=== PATIENT | female | born 1950 | race Caucasian/White ===

== ENCOUNTER → 2016-10-21 | Outpatient (CLI) | payer OTHER | END | disposition home or self-care (01) | LOC: MA 12:43 | PROC: BH02ZZZ Plain Radiography of Bilateral Breasts (ICD-10-PCS; principal; 2016-10-21) | DX: Z12.39 Encounter for other screening for malignant neoplasm of breast (principal) | CPT/HCPCS: G0202 ==

== ENCOUNTER 2017-05-24 15:32 | Inpatient (IN) | payer OTHER ==
[~2017-05-24] VITALS: Ht 157.5 cm; Wt 65.0 kg
[2017-05-24 17:35] VITALS: BP 124/52
[2017-05-24 19:30] VITALS: BP 109/44
[2017-05-24 20:01] LABS: FREE T4 0.98 ng/dL (0.76-1.46); FREE THYROXINE INDEX 2.3 ug/dL (1.4-4.5); T4(THYROXINE) 6.8 ug/dL (4.7-13.3)
[2017-05-24 20:06] LABS: CHOLESTEROL/HDL RATIO 3.4; MAGNESIUM 2.1 mg/dL (1.8-2.4); PHOSPHOROUS 3.4 mg/dL (2.5-4.9)
[2017-05-24 20:39] VITALS: BP 125/53
[2017-05-24 21:00] LABS: T3 TOTAL 1.02 ng/mL
[2017-05-24 21:16] LABS: BASOPHIL % 0.2 % (0-2); PLATELET COUNT 246 x10^3mcL (130-400); RED CELL DISTRIBUTION WIDTH 13.6 % (11.5-14.5)
[2017-05-24] MEDS ORDERED: LIPITOR40 MG PO (22:43)
[2017-05-24] MEDS ORDERED: LUNESTA2 M1 PO (22:44)
[2017-05-24 23:02] LABS: microscopic required? NO
[2017-05-24 23:10] LABS: UA SPECIFIC GRAVITY 1.015 (1.005-1.035); urine erythrocyte NEGATIVE (NEGATIVE)
[2017-05-24 23:21] LABS: AMPHETAMINE QUAL UR NONE DETECTED (NEG <=1000)
[2017-05-25] VITALS (8 sets, daily range): BP systolic 11–118; BP diastolic 31–63
[2017-05-25 02:52] LABS: CALCIUM 9.1 mg/dL (8.5-10.1); CARBON DIOXIDE 26.3 mmol/L (21-32); CHLORIDE SERUM 101 mmol/L (98-107); CREATININE SERUM 0.8 mg/dL (0.6-1.0); GFR1 > 60 mL/min; GLUCOSE SERUM 128 mg/dL (74-106); POTASSIUM SERUM 4.3 mmol/L (3.5-5.1); SODIUM SERUM 138 mmol/L (136-145)
[2017-05-25 07:13] LABS: BASOPHIL % 0.3 % (0-2); PLATELET COUNT 216 x10^3mcL (130-400); RED CELL DISTRIBUTION WIDTH 13.7 % (11.5-14.5)
[2017-05-25 07:22] LABS: CALCIUM 8.2 mg/dL (8.5-10.1); CARBON DIOXIDE 25.7 mmol/L (21-32); CHLORIDE SERUM 103 mmol/L (98-107); CREATININE SERUM 0.8 mg/dL (0.6-1.0); GFR1 > 60 mL/min; GLUCOSE SERUM 109 mg/dL (74-106); SODIUM SERUM 139 mmol/L (136-145)
[2017-05-26 05:53] VITALS: BP 119/55
[2017-05-26 06:50] LABS: CALCIUM 8.6 mg/dL (8.5-10.1); CARBON DIOXIDE 25.4 mmol/L (21-32); CHLORIDE SERUM 107 mmol/L (98-107); CREATININE SERUM 0.8 mg/dL (0.6-1.0); GFR1 > 60 mL/min; GLUCOSE SERUM 110 mg/dL (74-106); PHOSPHOROUS 3.7 mg/dL (2.5-4.9); POTASSIUM SERUM 4.2 mmol/L (3.5-5.1); SODIUM SERUM 141 mmol/L (136-145)
[2017-05-26 07:26] LABS: BASOPHIL % 0.6 % (0-2); PLATELET COUNT 201 x10^3mcL (130-400); RED CELL DISTRIBUTION WIDTH 13.7 % (11.5-14.5)
[2017-05-26 10:32] VITALS: BP 129/59
[2017-05-26 18:25] VITALS: BP 122/45
[2017-05-26 20:33] VITALS: BP 123/44
[2017-05-27 05:04] VITALS: BP 117/47
[2017-05-27 07:02] LABS: BASOPHIL % 0.5 % (0-2); PLATELET COUNT 217 x10^3mcL (130-400); RED CELL DISTRIBUTION WIDTH 13.4 % (11.5-14.5)
[2017-05-27 07:33] LABS: CALCIUM 8.6 mg/dL (8.5-10.1); CARBON DIOXIDE 24.1 mmol/L (21-32); CHLORIDE SERUM 104 mmol/L (98-107); CREATININE SERUM 0.7 mg/dL (0.6-1.0); GFR1 > 60 mL/min; GLUCOSE SERUM 106 mg/dL (74-106); MAGNESIUM 1.9 mg/dL (1.8-2.4); PHOSPHOROUS 3.3 mg/dL (2.5-4.9); SODIUM SERUM 139 mmol/L (136-145)
[2017-05-27 09:08] VITALS: BP 142/65
[2017-05-27] MEDS ORDERED: CYCLOBENZAPRINE5 MG PO (10:15)
[2017-05-27] MEDS ORDERED: NOR10T PO (10:17)
[2017-05-27] MEDS ORDERED: ZOFRAN8 MG PO (10:18)
[2017-05-27] MEDS ORDERED: IBUPROFEN800 MG PO (10:19)
[2017-05-27 11:41] VITALS: BP 135/64
[2017-05-27 12:08] VITALS: BP 135/64
== END 2017-05-27 16:50 | disposition home health service (06) | DRG 536 ==
LOC: DU 15:32 → MU 05-26 09:40
PROVIDERS: Family Medicine
DX: S32.492A Other specified fracture of left acetabulum, initial encounter for closed fracture (principal); D68.69 Other thrombophilia; S20.212A Contusion of left front wall of thorax, initial encounter; E78.5 Hyperlipidemia, unspecified; J45.909 Unspecified asthma, uncomplicated; R73.03 Prediabetes; M54.5 Low back pain; I83.91 Asymptomatic varicose veins of right lower extremity; E66.3 Overweight; V43.52XA Car driver injured in collision with other type car in traffic accident, initial encounter; Y92.414 Local residential or business street as the place of occurrence of the external cause; Y93.89 Activity, other specified; Z68.26 Body mass index [BMI] 26.0-26.9, adult; Z88.2 Allergy status to sulfonamides; Z88.8 Allergy status to other drugs, medicaments and biological substances; Z88.6 Allergy status to analgesic agent; Z88.1 Allergy status to other antibiotic agents; Z91.030 Bee allergy status; Z91.041 Radiographic dye allergy status; Z91.013 Allergy to seafood; Z82.49 Family history of ischemic heart disease and other diseases of the circulatory system; Z83.3 Family history of diabetes mellitus
CPT/HCPCS: 83880; 84439; 94150; 97116-GP; 97530-GP; J1644; J1885; J2405; J7030; J7620; Q0092

== ENCOUNTER → 2018-02-23 | Outpatient (CLI) | payer OTHER ==
[~2018-02-23] MED LIST: CYCLOBENZAPRINE5 MG PO; IBUPROFEN800 MG PO; LIPITOR40 MG PO; LUNESTA2 M1 PO; NOR10T PO; ZOFRAN8 MG PO
== END | disposition home or self-care (01) ==
LOC: MA 08:26
PROC: BH02ZZZ Plain Radiography of Bilateral Breasts (ICD-10-PCS; principal; 2018-02-23)
DX: Z12.31 Encounter for screening mammogram for malignant neoplasm of breast (principal)
CPT/HCPCS: 77067

== ENCOUNTER 2018-02-28 15:30 | Emergency (ER) | payer OTHER ==
[~2018-02-28] VITALS: Ht 157.5 cm; Wt 59.4 kg
[2018-02-28 15:52] VITALS: Ht 157.5 cm; Wt 59.4 kg
[2018-02-28 17:01] LABS: microscopic required? NO
[2018-02-28 17:07] LABS: urine erythrocyte NEGATIVE (NEGATIVE)
[2018-02-28 17:09] LABS: BASOPHIL % 0.8 % (0-2); PLATELET COUNT 293 x10^3mcL (130-400); RED CELL DISTRIBUTION WIDTH 13.3 % (11.5-14.5)
[2018-02-28 17:12] LABS: CARBON DIOXIDE 25.8 mmol/L (21-32); CHLORIDE SERUM 103 mmol/L (98-107); CREATININE SERUM 0.6 mg/dL (0.6-1.0); GFR1 > 60 mL/min; GLUCOSE SERUM 102 mg/dL (74-106); POTASSIUM SERUM 3.7 mmol/L (3.5-5.1); SODIUM SERUM 136 mmol/L (136-145)
[2018-02-28 17:17] LABS: ALBUMIN 3.5 g/dL (3.4-5.0); ALKALINE PHOSPHATASE 107 U/L (46-116); ALT/SGPT 25 U/L (14-59); AST/SGOT 13 U/L (15-37); BILIRUBIN TOTAL 0.3 mg/dL (0.20-1.00); LIPASE 167 IU/L (73-393)
[2018-02-28 20:00] VITALS: BP 141/73
== END 2018-02-28 20:00 | disposition home or self-care (01) ==
LOC: ED 15:30
PROVIDERS: Emergency Medicine
DX: R10.9 Unspecified abdominal pain (principal); J44.9 Chronic obstructive pulmonary disease, unspecified; J45.909 Unspecified asthma, uncomplicated; Z98.890 Other specified postprocedural states; Z91.013 Allergy to seafood; Z88.2 Allergy status to sulfonamides; Z88.8 Allergy status to other drugs, medicaments and biological substances
CPT/HCPCS: J1885; J2270; J2405; J3010; J7030